=== PATIENT | female | born 1950 | race Caucasian/White ===

== ENCOUNTER 2019-09-06 06:47 | Emergency (ER) | payer MEDICARE, MEDICAID ==
[~2019-09-06] VITALS: Ht 157.5 cm; Wt 100.0 kg
[~2019-09-06 06:47] MED LIST: FURO20TA4 PO; LACO200T2 PO; LACO50TA2 PO; LEVO112T5 PO; METO25TA6 PO; PERA8TAB; PHEN64.8 PO; PHEN97.22 PO; POTA8TAB8 PO; PREG100C PO; SIMV-42 PO
[2019-09-06] MEDS ORDERED: TETanus/Pertussis (Acell)/Diphther VAC/PF (Tdap-Adult) 0.5ml syringe IM ONE (08:10)
[2019-09-06 09:27] VITALS: BP 119/57
== END 2019-09-06 09:30 | disposition home or self-care (01) ==
LOC: ER 06:48
DX: S00.03XA Contusion of scalp, initial encounter (principal); S90.31XA Contusion of right foot, initial encounter; I48.91 Unspecified atrial fibrillation; I11.0 Hypertensive heart disease with heart failure; I50.9 Heart failure, unspecified; E78.00 Pure hypercholesterolemia, unspecified; E03.9 Hypothyroidism, unspecified; G89.29 Other chronic pain; Z98.890 Other specified postprocedural states; Z88.0 Allergy status to penicillin; Z79.899 Other long term (current) drug therapy; W18.39XA Other fall on same level, initial encounter; Y93.89 Activity, other specified; Y92.89 Other specified places as the place of occurrence of the external cause; Y99.8 Other external cause status
CPT/HCPCS: 73630; 90471; 99284

== ENCOUNTER 2019-09-15 17:45 | Emergency (ER) | payer MEDICARE, MEDICAID ==
[~2019-09-15] VITALS: Ht 157.5 cm; Wt 100.0 kg
[~2019-09-15 17:45] MED LIST changes: -SIMV-42 PO; +SIMV20TA5 PO
[2019-09-15 18:20] VITALS: BP 138/70
== END 2019-09-15 18:21 | disposition home or self-care (01) ==
LOC: ER 17:45
DX: M25.561 Pain in right knee (principal); G89.29 Other chronic pain; M54.5 Low back pain; R53.1 Weakness; I48.91 Unspecified atrial fibrillation; I11.0 Hypertensive heart disease with heart failure; I50.9 Heart failure, unspecified; E03.9 Hypothyroidism, unspecified; Z98.890 Other specified postprocedural states; Z79.899 Other long term (current) drug therapy; Z88.0 Allergy status to penicillin; W18.30XA Fall on same level, unspecified, initial encounter; Y93.89 Activity, other specified; Y92.89 Other specified places as the place of occurrence of the external cause; Y99.9 Unspecified external cause status
CPT/HCPCS: 99284

== ENCOUNTER 2019-09-20 18:19 | Emergency (ER) | payer MEDICARE, MEDICAID ==
[~2019-09-20] VITALS: Ht 157.5 cm; Wt 220.0 kg
[2019-09-20 18:25] VITALS: BP 125/74
[2019-09-20] MEDS ORDERED: LACO50TA2 PO (21:01)
[2019-09-20] MEDS ORDERED: LACO200T2 PO (21:01)
== END 2019-09-20 21:25 | disposition home or self-care (01) ==
LOC: ER 18:20
DX: R56.9 Unspecified convulsions (principal); Z76.0 Encounter for issue of repeat prescription; I48.91 Unspecified atrial fibrillation; I11.0 Hypertensive heart disease with heart failure; I50.9 Heart failure, unspecified; E78.00 Pure hypercholesterolemia, unspecified; E03.9 Hypothyroidism, unspecified; G89.29 Other chronic pain; Z98.890 Other specified postprocedural states; Z88.0 Allergy status to penicillin; Z79.899 Other long term (current) drug therapy
CPT/HCPCS: 99284

== ENCOUNTER 2019-11-26 17:31 | Emergency (ER) | payer MEDICARE, MEDICAID ==
[~2019-11-26] VITALS: Ht 157.5 cm; Wt 104.8 kg
[~2019-11-26 17:31] MED LIST changes: +SIMV-42 PO; -SIMV20TA5 PO
[2019-11-26 17:34] VITALS: BP 133/77
[2019-11-26] MEDS ORDERED: LACO50TA2 PO (18:29)
[2019-11-26] MEDS ORDERED: LACO200T2 PO (18:29)
== END 2019-11-26 18:38 | disposition home or self-care (01) ==
LOC: ER 17:32
DX: R56.9 Unspecified convulsions (principal); Z76.0 Encounter for issue of repeat prescription; I48.91 Unspecified atrial fibrillation; E78.00 Pure hypercholesterolemia, unspecified; E03.9 Hypothyroidism, unspecified; G89.29 Other chronic pain; I11.0 Hypertensive heart disease with heart failure; I50.9 Heart failure, unspecified; Z98.890 Other specified postprocedural states; Z87.01 Personal history of pneumonia (recurrent); Z88.0 Allergy status to penicillin; Z79.899 Other long term (current) drug therapy
CPT/HCPCS: 99284

== ENCOUNTER 2022-05-06 12:52 | Emergency (ER) | payer MEDICARE, MEDICAID ==
[~2022-05-06] VITALS: Ht 157.5 cm; Wt 100.0 kg
[~2022-05-06 12:52] MED LIST changes: +LOP25T PO; -METO25TA6 PO
[2022-05-06 16:18] VITALS: BP 132/68
== END 2022-05-06 16:20 | disposition home or self-care (01) ==
LOC: ER 12:52
DX: M53.3 Sacrococcygeal disorders, not elsewhere classified (principal); G40.909 Epilepsy, unspecified, not intractable, without status epilepticus; I48.91 Unspecified atrial fibrillation; I11.0 Hypertensive heart disease with heart failure; I50.9 Heart failure, unspecified; G89.29 Other chronic pain; E78.00 Pure hypercholesterolemia, unspecified; E03.9 Hypothyroidism, unspecified; Z87.01 Personal history of pneumonia (recurrent); Z98.891 History of uterine scar from previous surgery; Z88.0 Allergy status to penicillin; Z79.899 Other long term (current) drug therapy; W18.09XA Striking against other object with subsequent fall, initial encounter; Z91.81 History of falling; Y93.89 Activity, other specified; Y92.89 Other specified places as the place of occurrence of the external cause; Y99.8 Other external cause status
CPT/HCPCS: 99284

== ENCOUNTER 2022-08-25 00:50 | Inpatient (IN) | payer MEDICARE, MEDICAID ==
[~2022-08-25] VITALS: Ht 157.5 cm; Wt 100.0 kg
[2022-08-25] MEDS ORDERED: normal saline 1000ML IV soln IVB ONE ×2 (01:30→04:25)
[2022-08-25 02:07] LABS: BASOPHILS # (AUTO) 0.1 X10'3 (0-0.2); EOSINOPHILS # (AUTO) 0.5 X10'3 (0-0.9); EOSINOPHILS % (AUTO) 7.8 % (0-6); HEMATOCRIT 37.5 % (35.0-45.0); HEMOGLOBIN 12.8 g/dl (12.0-16.0); LYMPHOCYTES # (AUTO) 1.9 X10'3 (1.1-4.8); LYMPHOCYTES % (AUTO) 28.3 % (21-51); MEAN CORPUSCULAR HEMOGLOBIN 32.7 PG (27.0-31.0); MEAN CORPUSCULAR VOLUME 96.2 FL (78-98); MEAN PLATELET VOLUME 8.5 FL (7.4-10.4); MONOCYTES # (AUTO) 0.7 X10'3 (0-0.9); MONOCYTES % (AUTO) 10.2 % (2-12); NEUTROPHILS # (AUTO) 3.6 X10'3 (1.8-7.7); NEUTROPHILS % (AUTO) 52.7 % (42-75); PLATELET COUNT 168 X10'3 (140-440); RED CELL DISTRIBUTION WIDTH 13.8 % (11.5-14.5); WHITE BLOOD COUNT 6.8 X10'3 (4.5-11.0)
[2022-08-25 02:17] LABS: ALANINE AMINOTRANSFERASE 16 U/L (12-78); ALBUMIN 2.9 G/DL (3.4-5.0); ALBUMIN/GLOBULIN RATIO 0.9 (1.1-1.5); ALKALINE PHOSPHATASE 137 IU/L (46-116); ANION GAP 8 (8-16); ASPARTATE AMINO TRANSFERASE 12 U/L (10-37); BILIRUBIN,TOTAL 0.1 MG/DL (0.1-1.0); BLOOD UREA NITROGEN 17 MG/DL (7-18); BUN/CREATININE RATIO 27.9 (6.6-38.0); CALCIUM 8.3 MG/DL (8.5-10.1); CHLORIDE 105 MMOL/L (99-107); CREATININE 0.61 MG/DL (0.40-0.90); GLUCOSE 118 MG/DL (70-104); POTASSIUM 3.4 MMOL/L (3.5-5.1); SODIUM 140 MMOL/L (135-145); TOTAL CARBON DIOXIDE 27.5 MMOL/L (24-32); eGFR > 90 ML/MIN
[2022-08-25 02:24] LABS: MAGNESIUM 2.1 MG/DL (1.5-2.4)
[2022-08-25] MEDS ORDERED: TETanus/Pertussis (Acell)/Diphther VAC/PF (Tdap-Adult) 0.5ml syringe IMVAC ONE (03:40)
[2022-08-25 04:17] LABS: CLARITY,URINE SLIGHTLY CLOUDY (Clear); COLOR,URINE YELLOW (Yellow); GLUCOSE, URINE >=1000 mg/dl (Neg); KETONES,URINE NEGATIVE (Neg); LEUKOCYTE ESTERASE ,URINE SMALL (Neg); NITRITES, URINE NEGATIVE (Neg); OCCULT BLOOD,URINE NEGATIVE (Neg); PROTEIN,URINE NEGATIVE (Neg); UROBILINOGEN,URINE 0.2 E.U/dL (0.2-1.0)
[2022-08-25 04:24] LABS: UA COLLECTION TYPE CLN CATCH MIDSTREAM
[2022-08-25 04:26] LABS: WBC,URINE 20-30 /HPF (0-4)
[2022-08-25 04:27] LABS: BACTERIA,URINE 1+ /HPF (Neg); MUCUS STRANDS FEW /LPF (Neg); SQUAMOUS EPITHELIAL CELL,UR FEW /LPF (FEW); TRANSITIONAL EPI CELLS,URINE FEW /HPF; WBC CLUMPS,URINE FEW /HPF (NEGATIVE); YEAST FEW /HPF (NEGATIVE)
[2022-08-25] MEDS ORDERED: CefTRIAXone/D5W-Rocephin 1gm 50 ML IV ONE (04:30)
[2022-08-25] MEDS ORDERED: potassium Cl 20 mEq SR tablet PO ONE (05:30)
[2022-08-25] MEDS ORDERED: ondansetron/PF 4mg/2ml inj IV PRN (07:55)
[2022-08-25] MEDS ORDERED: magnesium 4gm in 100ml NS 100 ML IV PRN (07:55)
[2022-08-25] MEDS ORDERED: potassium CL 10mEq/100ml bag 100 ML IV PRN (07:55)
[2022-08-25] MEDS ORDERED: HYDROcodone/acetaminophen 5mg/325mg tablet PO PRN (07:55)
[2022-08-25] MEDS ORDERED: POTASSIUM BICARB 20meq eff tab 20 MEQ TABLET.EFF PO PRN ×2 (07:55)
[2022-08-25] MEDS ORDERED: acetaminophen 325mg tablet PO PRN ×2 (07:55)
[2022-08-25] MEDS ORDERED: magnesium 2GM in 50ml NS 50 ML IV PRN (07:55)
[2022-08-25] MEDS ORDERED: magnesium Cl slow-release 64mg tablet PO PRN (07:55)
[2022-08-25] MEDS: normal saline 1000ml 1,000 ML IV SCH ×3 (07:55→18:13)
[2022-08-25] MEDS ORDERED: ciprofloxacin lact 400MG/200ML 200 ML IV SCH (08:00)
[2022-08-25] MEDS ORDERED: dextrose 50%-water 50ml dispensing syringe IV PRN ×2 (08:00)
[2022-08-25] MEDS ORDERED: DEXTROSE 15 GM of carb/4 tabs (each vial/BOTTLE has 4 tablets) PO PRN ×2 (08:00)
[2022-08-25] MEDS ORDERED: heparin, porcine 5000 units/ml vial SQ SCH (08:00)
[2022-08-25] MEDS ORDERED: glucagon, human recombinant 1mg kit SUBCUT PRN (08:00)
[2022-08-25] MEDS ORDERED: K and/or MAG REPLACEMENT MC SCH (08:00)
[2022-08-25] MEDS ORDERED: MESSAGE TO PHARMACY PO ONE (08:00)
[2022-08-25] MEDS ORDERED: insulin Lispro (HumaLOG) vial - multi-dose SQ SCH (08:00)
[2022-08-25] MEDS ORDERED: SACU1TAB PO (14:48)
[2022-08-25] MEDS ORDERED: PHEN32.46 PO (14:48)
[2022-08-25] MEDS ORDERED: LEVO150T8 PO (14:48)
[2022-08-25] MEDS ORDERED: BISO10TA16 PO (14:48)
[2022-08-25] MEDS ORDERED: PREG300C19 PO (14:48)
[2022-08-25] MEDS ORDERED: DAPA10TA PO (14:48)
[2022-08-25] MEDS ORDERED: SPIR25TA5 PO (14:48)
[2022-08-25] MEDS ORDERED: PERA6TAB PO (14:48)
[2022-08-25] MEDS ORDERED: ALBU18HF2 PO (14:49)
[2022-08-25 18:08] VITALS: BP 99/42
--- NOTE | 2022-08-25 19:24 | NUR ---
Pt left AMA. Hospitalist notified. Pt advised to continue medications as directed, but to monitor and document blood pressure daily and to follow up with PCP NAT. Pt also advised to return to ER if condition worsens.
[2022-08-25] MEDS ORDERED: LACOSAMIDE 50 MG TABLET PO SCH ×2 (20:00)
[2022-08-25] MEDS ORDERED: insulin glargine (Lantus) pen - multi-dose SQ SCH (21:00)
[2022-08-25] MEDS ORDERED: TYPE IN GENERIC & BRAND NAME OF PATIENT MED STRENGTH & FORM PO SCH (21:00)
[2022-08-25] MEDS ORDERED: atorvastatin 10mg tablet PO SCH (21:00)
[2022-08-26] MEDS ORDERED: levoTHYROXINE 75mcg tablet PO SCH (07:00)
[2022-08-26] MEDS ORDERED: TYPE IN GENERIC & BRAND NAME OF PATIENT MED STRENGTH & FORM PO SCH (08:00)
[2022-08-26] MEDS ORDERED: atenolol 50mg tablet PO SCH (08:00)
--- NOTE | 2022-09-12 10:25 | NUR ---
[facility] DC follow up: Patient left AMA.
== END 2022-08-25 19:37 | disposition left against medical advice (07) | DRG 315 ==
LOC: ER 00:50 → ED HOLD 07:59
PROVIDERS: ADMIT Internal Medicine; ATTEND Internal Medicine
PROC: 3E0234Z Introduction of Serum, Toxoid and Vaccine into Muscle, Percutaneous Approach (ICD-10-PCS; principal; 2022-08-25)
DX: I95.9 Hypotension, unspecified (principal); I48.20 Chronic atrial fibrillation, unspecified; N39.0 Urinary tract infection, site not specified; G40.909 Epilepsy, unspecified, not intractable, without status epilepticus; R42 Dizziness and giddiness; E03.9 Hypothyroidism, unspecified; E78.00 Pure hypercholesterolemia, unspecified; I11.0 Hypertensive heart disease with heart failure; W18.39XA Other fall on same level, initial encounter; Z53.29 Procedure and treatment not carried out because of patient's decision for other reasons; I25.10 Atherosclerotic heart disease of native coronary artery without angina pectoris; I50.9 Heart failure, unspecified; G89.29 Other chronic pain; Y93.01 Activity, walking, marching and hiking; M54.9 Dorsalgia, unspecified; R26.89 Other abnormalities of gait and mobility; Z87.01 Personal history of pneumonia (recurrent); Z23 Encounter for immunization; Y92.098 Other place in other non-institutional residence as the place of occurrence of the external cause; Y99.8 Other external cause status; Z88.0 Allergy status to penicillin
CPT/HCPCS: 36415; 70450; 71045; 80053; 81001; 82948; 83605; 83735; 83880; 84439; 84443; 84484; 85025; 85610; 87040; 87077; 87081; 87186; 90715; 93005; 93306; 99285; G0378; J0696; J0744; J1644; J1815; J7030

== ENCOUNTER 2022-10-16 01:46 | Emergency (ER) | payer MEDICARE, MEDICAID ==
[~2022-10-16] VITALS: Ht 157.5 cm; Wt 102.2 kg
[~2022-10-16 01:46] MED LIST changes: +ALBU18HF2 PO; +BISO10TA16 PO; +DAPA10TA PO; -FURO20TA4 PO; -LEVO112T5 PO; +LEVO150T8 PO; -LOP25T PO; +PERA6TAB PO; -PERA8TAB; +PHEN32.46 PO; -PHEN64.8 PO; -PHEN97.22 PO; -POTA8TAB8 PO; -PREG100C PO; +PREG300C19 PO; +SACU1TAB PO; +SPIR25TA5 PO
[2022-10-16 01:51] VITALS: BP 108/49
[2022-10-16] MEDS ORDERED: normal saline 1000ML IV soln IVB ONE (02:20)
== END 2022-10-16 03:01 | disposition home or self-care (01) ==
LOC: ER 01:46
DX: M25.561 Pain in right knee (principal); W19.XXXA Unspecified fall, initial encounter; Y93.89 Activity, other specified; Y92.89 Other specified places as the place of occurrence of the external cause; Y99.8 Other external cause status
CPT/HCPCS: 99281

== ENCOUNTER 2022-11-11 00:38 | Inpatient (IN) | payer MEDICARE, MEDICAID ==
[2022-11-11] VITALS (19 sets, daily range): BP systolic 85–135; BP diastolic 37–105
[~2022-11-11] VITALS: Ht 157.5 cm; Wt 104.2 kg
[2022-11-11] MEDS ORDERED: normal saline 1000ml 1,000 ML IV ONE (00:55)
[2022-11-11] MEDS ORDERED: iohexol 350MG/ML 100ml bottle IV ONE (01:17)
[2022-11-11] MEDS ORDERED: CefTRIAXone/D5W-Rocephin 1gm 50 ML IV ONE (01:25)
[2022-11-11 01:26] LABS: BASOPHILS # (AUTO) 0.1 X10'3 (0-0.2); BASOPHILS % (AUTO) 1.2 % (0-1); EOSINOPHILS # (AUTO) 0.5 X10'3 (0-0.9); EOSINOPHILS % (AUTO) 9.2 % (0-6); HEMATOCRIT 35.9 % (35.0-45.0); HEMOGLOBIN 12.2 g/dl (12.0-16.0); LYMPHOCYTES # (AUTO) 1.8 X10'3 (1.1-4.8); LYMPHOCYTES % (AUTO) 32.4 % (21-51); MEAN CORPUSCULAR HEMOGLOBIN 32.4 PG (27.0-31.0); MEAN CORPUSCULAR HGB CONC 33.9 g/dL (33.0-36.5); MEAN CORPUSCULAR VOLUME 95.4 FL (78-98); MEAN PLATELET VOLUME 8.2 FL (7.4-10.4); MONOCYTES # (AUTO) 0.5 X10'3 (0-0.9); MONOCYTES % (AUTO) 9.4 % (2-12); NEUTROPHILS # (AUTO) 2.7 X10'3 (1.8-7.7); NEUTROPHILS % (AUTO) 47.8 % (42-75); PLATELET COUNT 175 X10'3 (140-440); RED BLOOD COUNT 3.77 X10'6 (4.20-5.60); RED CELL DISTRIBUTION WIDTH 14.1 % (11.5-14.5); WHITE BLOOD COUNT 5.7 X10'3 (4.5-11.0)
[2022-11-11] MEDS ORDERED: LIDOcaine 2% 10ml TOPICAL JELLY (Urojet) TP ONE (01:30)
[2022-11-11] MEDS: normal saline 1000ML IV soln IVB ONE ×2 (01:34→02:19)
[2022-11-11 01:48] LABS: ALANINE AMINOTRANSFERASE 13 U/L (12-78); ALBUMIN 2.7 G/DL (3.4-5.0); ALBUMIN/GLOBULIN RATIO 0.9 (1.1-1.5); ALKALINE PHOSPHATASE 132 IU/L (46-116); ANION GAP 8 (8-16); ASPARTATE AMINO TRANSFERASE 15 U/L (10-37); BILIRUBIN,TOTAL 0.2 MG/DL (0.1-1.0); BLOOD UREA NITROGEN 18 MG/DL (7-18); BUN/CREATININE RATIO 29.5 (6.6-38.0); CALCIUM 7.9 MG/DL (8.5-10.1); CHLORIDE 106 MMOL/L (99-107); CREATININE 0.61 MG/DL (0.40-0.90); GLUCOSE 76 MG/DL (70-104); POTASSIUM 3.7 MMOL/L (3.5-5.1); SODIUM 138 MMOL/L (135-145); TOTAL CARBON DIOXIDE 24.1 MMOL/L (24-32); TOTAL PROTEIN 5.7 G/DL (6.4-8.2); eGFR > 90 ML/MIN
[2022-11-11] MEDS: normal saline 1000ml 1,000 ML IVB ONE ×2 (02:00→02:18)
[2022-11-11 02:02] LABS: COLOR,URINE YELLOW (Yellow); GLUCOSE, URINE 500 mg/dl (Neg); KETONES,URINE NEGATIVE (Neg); LEUKOCYTE ESTERASE ,URINE TRACE (Neg); NITRITES, URINE NEGATIVE (Neg); OCCULT BLOOD,URINE NEGATIVE (Neg); PROTEIN,URINE NEGATIVE (Neg); UROBILINOGEN,URINE 0.2 E.U/dL (0.2-1.0)
[2022-11-11 02:08] LABS: BACTERIA,URINE FEW /HPF (Neg); CLARITY,URINE Slightly Cloudy (Clear); RBC,URINE NONE SEEN /HPF (0-2); SQUAMOUS EPITHELIAL CELL,UR MODERATE /LPF (FEW); UA COLLECTION TYPE FOLEY CATH
[2022-11-11 02:09] LABS: WBC CLUMPS,URINE FEW /HPF (NEGATIVE)
[2022-11-11] MEDS: normal saline 1000ml 1,000 ML IV ONE ×2 (02:14→02:19)
[2022-11-11] MEDS ORDERED: NORepinephrine 8mg/ 250ml NS 250 ML IV PRN ×2 (02:20→04:20)
[2022-11-11] MEDS ORDERED: morphine 2 MG/ML inj. syringe IV PRN (04:20)
[2022-11-11] MEDS ORDERED: ondansetron/PF 4mg/2ml inj IV PRN (04:20)
[2022-11-11] MEDS ORDERED: magnesium hydroxide 30ml (MOM) UD suspension PO PRN (04:20)
[2022-11-11] MEDS ORDERED: acetaminophen 325mg tablet PO PRN (04:20)
[2022-11-11] MEDS ORDERED: POTASSIUM BICARB 20meq eff tab 20 MEQ TABLET.EFF PO PRN ×2 (04:20)
[2022-11-11] MEDS: normal saline 1000ml 1,000 ML IV SCH ×2 (04:39→16:40)
--- NOTE | 2022-11-11 04:45 | NUR ---
Pt arrived from ER via gurney, placed on icu bed. Patient awake, alert, oriented x 3, able to follow commands with c/o of low back pain which she states she has had for years due to multiple falls. Iv 18g to Right ac and 20 g to left hand, intact and infusing. Levophed decreased from 0.1 to 0.08 due to elevated diastolic bp (105). Report received from Meghann in ER. All questions answered. Patient with a shirt, pants, underwear and shoes at bedside.
--- NOTE | 2022-11-11 05:52 | NUR ---
hydrophilic foam dressing placed on coccyx for protection.
[2022-11-11] MEDS: K and/or MAG REPLACEMENT MC SCH (08:00)
[2022-11-11] MEDS: pantoprazole 40mg Tablet.DR PO SCH (08:36)
[2022-11-11] MEDS: heparin, porcine 5000 units/ml vial SQ SCH ×2 (08:37→20:49)
[2022-11-11] MEDS: CefTRIAXone/D5W-Rocephin 1gm 50 ML IV SCH (09:43)
[2022-11-11] MEDS ORDERED: normal saline 1000ml 1,000 ML IVB ONE (10:05)
[2022-11-11] MEDS ORDERED: albuterol 2.5 MG/3 ML nebule NEB PRN (10:50)
[2022-11-11] MEDS ORDERED: pregabalin 75mg capsule PO ONE (11:05)
[2022-11-11] MEDS ORDERED: LACOSAMIDE 50 MG TABLET PO ONE (11:05)
--- NOTE | 2022-11-11 16:18 | NUR ---
Patient still requiring 0.01 to 0.03 mcg/kg/min Norepinephrine through PIV. Orders per Dr. Moreno to change to 7.5 Dopamine and transfer to floor if tolerating Dopamine.
[2022-11-11] MEDS ORDERED: DOPamine 400mg/D5W 250ml 250 ML IV SCH (16:20)
[2022-11-11] MEDS: DOPamine 400mg/D5W 250ml 250 ML IV SCH (16:28)
--- NOTE | 2022-11-11 18:26 | NUR ---
Report received from William GRIFFITHS. All questions answered. Patient awake, alert and up in chair having dinner with friend at her bedside. Patient denies any discomfort at this time.
[2022-11-11] MEDS ORDERED: LACOSAMIDE PO SCH (20:00)
[2022-11-11] MEDS: atorvastatin 10mg tablet PO SCH (20:46)
[2022-11-11] MEDS: LACOSAMIDE 50 MG TABLET PO SCH (20:49)
[2022-11-11] MEDS: pregabalin 75mg capsule PO SCH (20:49)
[2022-11-11] MEDS: phenobarbital 30mg tablet PO SCH (20:50)
[2022-11-11] MEDS: PERAMPANEL 6 MG PO SCH (20:50)
[2022-11-11] MEDS: acetaminophen 325mg tablet PO PRN (22:52)
[2022-11-12] VITALS (24 sets, daily range): BP systolic 85–141; BP diastolic 34–69
[2022-11-12] MEDS: DOPamine 400mg/D5W 250ml 250 ML IV SCH ×2 (02:30→17:56)
[2022-11-12] MEDS: normal saline 1000ml 1,000 ML IV SCH ×2 (05:45→20:34)
[2022-11-12 05:57] LABS: ALBUMIN 2.9 G/DL (3.4-5.0); ANION GAP 8 (8-16); BLOOD UREA NITROGEN 10 MG/DL (7-18); BUN/CREATININE RATIO 19.2 (6.6-38.0); CALCIUM 8.5 MG/DL (8.5-10.1); CHLORIDE 108 MMOL/L (99-107); CREATININE 0.52 MG/DL (0.40-0.90); GLUCOSE 126 MG/DL (70-104); MAGNESIUM 1.9 MG/DL (1.5-2.4); PHOSPHORUS 2.6 MG/DL (2.3-4.5); POTASSIUM 3.9 MMOL/L (3.5-5.1); SODIUM 142 MMOL/L (135-145); TOTAL CARBON DIOXIDE 26.2 MMOL/L (24-32); eGFR > 90 ML/MIN
[2022-11-12 06:07] LABS: HEMOGLOBIN 14.1 g/dl (12.0-16.0); WHITE BLOOD COUNT 7.4 X10'3 (4.5-11.0)
[2022-11-12 06:08] LABS: BASOPHILS % (AUTO) 0.3 % (0-1); EOSINOPHILS # (AUTO) 0.1 X10'3 (0-0.9); EOSINOPHILS % (AUTO) 1.8 % (0-6); HEMATOCRIT 41.8 % (35.0-45.0); LYMPHOCYTES # (AUTO) 0.9 X10'3 (1.1-4.8); MEAN CORPUSCULAR HEMOGLOBIN 32.2 PG (27.0-31.0); MEAN CORPUSCULAR HGB CONC 33.7 g/dL (33.0-36.5); MEAN CORPUSCULAR VOLUME 95.7 FL (78-98); MEAN PLATELET VOLUME 8.6 FL (7.4-10.4); MONOCYTES # (AUTO) 0.5 X10'3 (0-0.9); MONOCYTES % (AUTO) 7.2 % (2-12); NEUTROPHILS # (AUTO) 5.8 X10'3 (1.8-7.7); NEUTROPHILS % (AUTO) 78.7 % (42-75); PLATELET COUNT 164 X10'3 (140-440); RED BLOOD COUNT 4.37 X10'6 (4.20-5.60); RED CELL DISTRIBUTION WIDTH 13.8 % (11.5-14.5)
--- NOTE | 2022-11-12 06:30 | NUR ---
Patient in room CICU 2010. I have received report from Bre GRIFFITHS and had the opportunity to ask questions and assume patient care.
[2022-11-12] MEDS: levoTHYROXINE 75mcg tablet PO SCH (07:56)
[2022-11-12] MEDS: pantoprazole 40mg Tablet.DR PO SCH (07:56)
[2022-11-12] MEDS: DAPAGLIFLOZIN 10MG TABLET PO SCH (07:57)
[2022-11-12] MEDS: pregabalin 75mg capsule PO SCH ×2 (07:57→20:11)
[2022-11-12] MEDS: heparin, porcine 5000 units/ml vial SQ SCH ×2 (07:57→20:11)
[2022-11-12] MEDS: K and/or MAG REPLACEMENT MC SCH (08:00)
[2022-11-12] MEDS ORDERED: TYPE IN GENERIC & BRAND NAME OF PATIENT MED STRENGTH & FORM PO SCH (08:00)
[2022-11-12] MEDS: CefTRIAXone/D5W-Rocephin 1gm 50 ML IV SCH (08:39)
[2022-11-12] MEDS: LACOSAMIDE 50 MG TABLET PO SCH ×2 (09:27→20:34)
--- NOTE | 2022-11-12 11:30 | NUR ---
Left wrist PIV infiltrated with dopamine infusing. Started new 20g PIV in right wrist, discontinued left wrist PIV and marked dark area around infusion site with sharpie pen.
[2022-11-12] MEDS ORDERED: normal saline 1000ml 1,000 ML IV ONE (12:00)
[2022-11-12] MEDS: midodrine 5mg tablet PO SCH ×2 (13:13→16:03)
--- NOTE | 2022-11-12 15:30 | NUR ---
Dr Moreno informed of positive blood culture result. Current antibiotic coverage confirmed.
--- NOTE | 2022-11-12 18:13 | NUR ---
Problems reprioritized. Patient report given, questions answered & plan of care reviewed with AYE Gibbs.
[2022-11-12] MEDS: atorvastatin 10mg tablet PO SCH (20:11)
[2022-11-12] MEDS: PERAMPANEL 6 MG PO SCH (20:12)
[2022-11-12] MEDS: phenobarbital 30mg tablet PO SCH (21:05)
[2022-11-13] VITALS (20 sets, daily range): BP systolic 83–157; BP diastolic 39–69
--- NOTE | 2022-11-13 00:42 | NUR ---
Sleeping quietly. BPS 79 O2 sat 88. Dopamine started at 5 mcg/kg/min and O2 wL/min via NC started
[2022-11-13 06:07] LABS: ALBUMIN 2.5 G/DL (3.4-5.0); ANION GAP 10 (8-16); BLOOD UREA NITROGEN 11 MG/DL (7-18); CALCIUM 8.1 MG/DL (8.5-10.1); CHLORIDE 110 MMOL/L (99-107); GLUCOSE 100 MG/DL (70-104); MAGNESIUM 1.9 MG/DL (1.5-2.4); PHOSPHORUS 2.5 MG/DL (2.3-4.5); POTASSIUM 3.7 MMOL/L (3.5-5.1); SODIUM 144 MMOL/L (135-145); TOTAL CARBON DIOXIDE 24.5 MMOL/L (24-32); eGFR > 90 ML/MIN
[2022-11-13 06:15] LABS: BASOPHILS % (AUTO) 0.8 % (0-1); EOSINOPHILS # (AUTO) 0.4 X10'3 (0-0.9); EOSINOPHILS % (AUTO) 6.8 % (0-6); HEMATOCRIT 35.9 % (35.0-45.0); LYMPHOCYTES # (AUTO) 1.3 X10'3 (1.1-4.8); LYMPHOCYTES % (AUTO) 21.7 % (21-51); MEAN CORPUSCULAR HEMOGLOBIN 32.1 PG (27.0-31.0); MEAN CORPUSCULAR HGB CONC 33.5 g/dL (33.0-36.5); MEAN CORPUSCULAR VOLUME 95.7 FL (78-98); MEAN PLATELET VOLUME 8.3 FL (7.4-10.4); MONOCYTES # (AUTO) 0.5 X10'3 (0-0.9); MONOCYTES % (AUTO) 8.1 % (2-12); NEUTROPHILS # (AUTO) 3.6 X10'3 (1.8-7.7); NEUTROPHILS % (AUTO) 62.6 % (42-75); PLATELET COUNT 140 X10'3 (140-440); RED BLOOD COUNT 3.75 X10'6 (4.20-5.60); RED CELL DISTRIBUTION WIDTH 14.3 % (11.5-14.5); WHITE BLOOD COUNT 5.8 X10'3 (4.5-11.0)
[2022-11-13] MEDS: DOPamine 400mg/D5W 250ml 250 ML IV SCH ×2 (06:44→19:32)
[2022-11-13] MEDS: pantoprazole 40mg Tablet.DR PO SCH (07:21)
[2022-11-13] MEDS: CefTRIAXone/D5W-Rocephin 1gm 50 ML IV SCH (07:21)
[2022-11-13] MEDS: heparin, porcine 5000 units/ml vial SQ SCH ×2 (07:21→19:30)
[2022-11-13] MEDS: midodrine 5mg tablet PO SCH ×3 (07:21→15:22)
[2022-11-13] MEDS: levoTHYROXINE 75mcg tablet PO SCH (07:22)
[2022-11-13] MEDS: DAPAGLIFLOZIN 10MG TABLET PO SCH (07:22)
[2022-11-13] MEDS: K and/or MAG REPLACEMENT MC SCH (08:00)
[2022-11-13] MEDS: LACOSAMIDE 50 MG TABLET PO SCH ×2 (08:07→19:29)
[2022-11-13] MEDS: pregabalin 75mg capsule PO SCH ×2 (08:07→19:30)
--- NOTE | 2022-11-13 09:14 | NUR ---
0700 -- pt resting in bed 0800 -- pt up to bedside commode, then to chair. Dopamine gtt turned off by RN. WRIGHT 08 -- Home caregiver given update on pt status. 909 -- Sister given update on pt status. Addendum: 11/13/22 at 0952 by Gloria Frankel RN 0950 -- Pt requested to return to bed. Pt using bedside commode. Call light within reach. VSS. Addendum: 11/13/22 at 1556 by Gloria Frankel RN Pt AOx4. VSS. Dopamine off since 0800 see i/o. Pt up to chair 3x. Pt able to use bedside commode w/ standby assist. Pt appropriately uses call light. NS infusing at 75. Addendum: 11/13/22 at 1600 by Gloria Frankel RN per order. Pt family update and caregiver at bedside. Orders for tx to medsurg placed. Caregiver requesting pt get room w/o a roommate upon moving to medsurg floor. RN informed ICU charge nurse of caregiver requests. Pt BP stable. Blood cultures redrawn due to possible contamination concern. Pt cortisol and TSH also drawn. RN will continue to monitor pt status. Addendum: 11/13/22 at 1624 by Gloria Frankel RN Pt up at bedside commode.
[2022-11-13] MEDS: normal saline 1000ml 1,000 ML IV SCH ×2 (09:40→21:44)
--- NOTE | 2022-11-13 11:24 | NUR ---
Initial: Pt admitted w/ septic shock secondary to UTI per EMR. Currently on heart Healthy diet w/ avg intake 55% of meals partially meeting est needs. Will recommend Ensure Plus HP once daily for additional protein. LBM 11/11, to start colace per MD. Will continue to monitor. Recs: 1. Continue Heart Healthy diet; consider liberalizing to Regular 2. Ensure Plus HP WB; pending MD verification 3. Bowel care per rx 4. Weekly wts Addendum: 11/13/22 at [address] Amended: Links added.
[2022-11-13] MEDS: docusate sod 100mg capsule PO SCH (19:29)
[2022-11-13] MEDS: atorvastatin 10mg tablet PO SCH (20:41)
[2022-11-13] MEDS: PERAMPANEL 6 MG PO SCH (20:42)
[2022-11-13] MEDS: phenobarbital 30mg tablet PO SCH (21:25)
[2022-11-14] VITALS (11 sets, daily range): BP systolic 103–151; BP diastolic 42–70
[2022-11-14 06:32] LABS: BASOPHILS % (AUTO) 0.9 % (0-1); EOSINOPHILS # (AUTO) 0.4 X10'3 (0-0.9); EOSINOPHILS % (AUTO) 8.5 % (0-6); HEMATOCRIT 31.6 % (35.0-45.0); HEMOGLOBIN 10.7 g/dl (12.0-16.0); LYMPHOCYTES # (AUTO) 1.2 X10'3 (1.1-4.8); LYMPHOCYTES % (AUTO) 27.8 % (21-51); MEAN CORPUSCULAR HEMOGLOBIN 32.5 PG (27.0-31.0); MEAN CORPUSCULAR HGB CONC 33.9 g/dL (33.0-36.5); MEAN CORPUSCULAR VOLUME 95.8 FL (78-98); MEAN PLATELET VOLUME 8.1 FL (7.4-10.4); MONOCYTES # (AUTO) 0.4 X10'3 (0-0.9); MONOCYTES % (AUTO) 10.2 % (2-12); NEUTROPHILS # (AUTO) 2.3 X10'3 (1.8-7.7); NEUTROPHILS % (AUTO) 52.6 % (42-75); PLATELET COUNT 122 X10'3 (140-440); RED BLOOD COUNT 3.29 X10'6 (4.20-5.60); RED CELL DISTRIBUTION WIDTH 13.8 % (11.5-14.5); WHITE BLOOD COUNT 4.4 X10'3 (4.5-11.0)
[2022-11-14 07:00] LABS: ALBUMIN 2.2 G/DL (3.4-5.0); ANION GAP 6 (8-16); BLOOD UREA NITROGEN 12 MG/DL (7-18); BUN/CREATININE RATIO 17.6 (6.6-38.0); CALCIUM 8.1 MG/DL (8.5-10.1); CHLORIDE 110 MMOL/L (99-107); CREATININE 0.68 MG/DL (0.40-0.90); GLUCOSE 82 MG/DL (70-104); MAGNESIUM 1.7 MG/DL (1.5-2.4); PHOSPHORUS 3.1 MG/DL (2.3-4.5); POTASSIUM 3.8 MMOL/L (3.5-5.1); SODIUM 142 MMOL/L (135-145); TOTAL CARBON DIOXIDE 25.7 MMOL/L (24-32); eGFR 85 ML/MIN
[2022-11-14] MEDS: pantoprazole 40mg Tablet.DR PO SCH (07:20)
[2022-11-14] MEDS: levoTHYROXINE 75mcg tablet PO SCH (07:20)
[2022-11-14] MEDS: LACTOSE-REDUCED FOOD (ENSURE PLUS-HP) VANILLA 237 ML BOTTLE PO SCH (07:30)
[2022-11-14] MEDS: DAPAGLIFLOZIN 10MG TABLET PO SCH (07:45)
[2022-11-14] MEDS: heparin, porcine 5000 units/ml vial SQ SCH ×2 (07:46→20:37)
[2022-11-14] MEDS: docusate sod 100mg capsule PO SCH ×2 (07:46→20:35)
[2022-11-14] MEDS: LACOSAMIDE 50 MG TABLET PO SCH ×2 (07:46→20:37)
[2022-11-14] MEDS: pregabalin 75mg capsule PO SCH ×2 (07:46→20:36)
[2022-11-14] MEDS: midodrine 5mg tablet PO SCH ×3 (07:47→16:50)
[2022-11-14] MEDS: CefTRIAXone/D5W-Rocephin 1gm 50 ML IV SCH (07:54)
[2022-11-14] MEDS: DOPamine 400mg/D5W 250ml 250 ML IV SCH (08:20)
[2022-11-14] MEDS: normal saline 1000ml 1,000 ML IV SCH (12:22)
--- NOTE | 2022-11-14 15:07 | NUR ---
Telephone report to AYE Patrick on Surgical unit.
--- NOTE | 2022-11-14 15:13 | NUR ---
Pt transferred via wheelchair to room 340B.
--- NOTE | 2022-11-14 18:15 | NUR ---
Patient in room [facility] 340. I have received report from AYE Patrick and had the opportunity to ask questions and assume patient care.
--- NOTE | 2022-11-14 18:41 | NUR ---
Problems reprioritized. Patient report given, questions answered & plan of care reviewed with Naomi GRIFFITHS.
[2022-11-14] MEDS: atorvastatin 10mg tablet PO SCH (20:37)
[2022-11-14] MEDS: PERAMPANEL 6 MG PO SCH (21:00)
[2022-11-14] MEDS: phenobarbital 30mg tablet PO SCH (23:07)
[2022-11-15] MEDS: normal saline 1000ml 1,000 ML IV SCH ×2 (01:40→15:00)
[2022-11-15 06:00] VITALS: BP 124/63
--- NOTE | 2022-11-15 06:05 | NUR ---
Problems reprioritized. Patient report given, questions answered & plan of care reviewed with AYE Patrick.
[2022-11-15 06:09] LABS: BASOPHILS % (AUTO) 0.6 % (0-1); EOSINOPHILS # (AUTO) 0.4 X10'3 (0-0.9); EOSINOPHILS % (AUTO) 7.9 % (0-6); HEMATOCRIT 35.3 % (35.0-45.0); HEMOGLOBIN 11.9 g/dl (12.0-16.0); LYMPHOCYTES # (AUTO) 1.2 X10'3 (1.1-4.8); LYMPHOCYTES % (AUTO) 22.5 % (21-51); MEAN CORPUSCULAR HEMOGLOBIN 32.2 PG (27.0-31.0); MEAN CORPUSCULAR HGB CONC 33.6 g/dL (33.0-36.5); MEAN CORPUSCULAR VOLUME 95.8 FL (78-98); MEAN PLATELET VOLUME 7.9 FL (7.4-10.4); MONOCYTES # (AUTO) 0.5 X10'3 (0-0.9); MONOCYTES % (AUTO) 9.1 % (2-12); NEUTROPHILS # (AUTO) 3.1 X10'3 (1.8-7.7); NEUTROPHILS % (AUTO) 59.9 % (42-75); PLATELET COUNT 156 X10'3 (140-440); RED BLOOD COUNT 3.69 X10'6 (4.20-5.60); RED CELL DISTRIBUTION WIDTH 13.7 % (11.5-14.5); WHITE BLOOD COUNT 5.2 X10'3 (4.5-11.0)
[2022-11-15 06:31] LABS: ALBUMIN 2.7 G/DL (3.4-5.0); ANION GAP 7 (8-16); BLOOD UREA NITROGEN 13 MG/DL (7-18); BUN/CREATININE RATIO 22.4 (6.6-38.0); CALCIUM 8.6 MG/DL (8.5-10.1); CHLORIDE 109 MMOL/L (99-107); CREATININE 0.58 MG/DL (0.40-0.90); GLUCOSE 84 MG/DL (70-104); MAGNESIUM 1.8 MG/DL (1.5-2.4); POTASSIUM 3.8 MMOL/L (3.5-5.1); SODIUM 142 MMOL/L (135-145); TOTAL CARBON DIOXIDE 26.3 MMOL/L (24-32); eGFR > 90 ML/MIN
--- NOTE | 2022-11-15 07:03 | NUR ---
Patient in room [facility] 340. I have received report from Naomi GRFIFITHS and had the opportunity to ask questions and assume patient care.
[2022-11-15] MEDS: LACTOSE-REDUCED FOOD (ENSURE PLUS-HP) VANILLA 237 ML BOTTLE PO SCH (07:30)
[2022-11-15] MEDS: levoTHYROXINE 75mcg tablet PO SCH (07:37)
[2022-11-15] MEDS: pregabalin 75mg capsule PO SCH ×2 (07:38→21:55)
[2022-11-15] MEDS: midodrine 5mg tablet PO SCH ×3 (07:38→16:25)
[2022-11-15] MEDS: DAPAGLIFLOZIN 10MG TABLET PO SCH (07:38)
[2022-11-15] MEDS: pantoprazole 40mg Tablet.DR PO SCH (07:38)
[2022-11-15] MEDS: LACOSAMIDE 50 MG TABLET PO SCH ×2 (07:39→21:56)
[2022-11-15] MEDS: heparin, porcine 5000 units/ml vial SQ SCH ×2 (07:40→21:57)
[2022-11-15] MEDS: docusate sod 100mg capsule PO SCH ×2 (07:40→21:55)
[2022-11-15] MEDS: acetaminophen 325mg tablet PO PRN (07:51)
[2022-11-15] MEDS: CefTRIAXone/D5W-Rocephin 1gm 50 ML IV SCH (08:15)
[2022-11-15 10:00] VITALS: BP 141/70
--- NOTE | 2022-11-15 10:17 | NUR ---
PAGER ID: [phone] MESSAGE: [facility] Surg [phone] Re: Tami GomezB Please call Re: seizure medication
--- NOTE | 2022-11-15 12:41 | NUR ---
PAGER ID: [phone] MESSAGE: Celina Surg [phone] Re: Tami 340B ambulated 300' with PCT. Also would like Nystatin powder for discharge please
[2022-11-15] MEDS ORDERED: nystatin 15 GM powder TP SCH (13:00)
[2022-11-15] MEDS: nystatin 15 GM powder TP SCH ×3 (13:00→21:58)
--- NOTE | 2022-11-15 13:00 | NUR ---
Patient unavailable at this time for Nystatin
[2022-11-15 18:00] VITALS: BP 141/57
--- NOTE | 2022-11-15 18:05 | NUR ---
Patient in room [facility] 340. I have received report from AYE Patrick and had the opportunity to ask questions and assume patient care.
--- NOTE | 2022-11-15 18:10 | NUR ---
Problems reprioritized. Patient report given, questions answered & plan of care reviewed with Naomi GRIFFITHS.
[2022-11-15] MEDS: PERAMPANEL 6 MG PO SCH (21:57)
[2022-11-15] MEDS: atorvastatin 10mg tablet PO SCH (21:57)
[2022-11-15] MEDS: phenobarbital 30mg tablet PO SCH (21:58)
[2022-11-15 22:00] VITALS: BP 133/63
[2022-11-16] MEDS: normal saline 1000ml 1,000 ML IV SCH (04:20)
[2022-11-16 06:04] LABS: EOSINOPHILS # (AUTO) 0.5 X10'3 (0-0.9); EOSINOPHILS % (AUTO) 9.5 % (0-6); HEMATOCRIT 34.4 % (35.0-45.0); HEMOGLOBIN 11.4 g/dl (12.0-16.0); LYMPHOCYTES # (AUTO) 1.3 X10'3 (1.1-4.8); MEAN CORPUSCULAR HEMOGLOBIN 31.7 PG (27.0-31.0); MEAN CORPUSCULAR VOLUME 95.9 FL (78-98); MONOCYTES # (AUTO) 0.5 X10'3 (0-0.9); MONOCYTES % (AUTO) 10.5 % (2-12); NEUTROPHILS # (AUTO) 2.6 X10'3 (1.8-7.7); PLATELET COUNT 151 X10'3 (140-440); RED BLOOD COUNT 3.59 X10'6 (4.20-5.60); RED CELL DISTRIBUTION WIDTH 13.9 % (11.5-14.5); WHITE BLOOD COUNT 4.9 X10'3 (4.5-11.0)
--- NOTE | 2022-11-16 06:33 | NUR ---
Patient in room [facility] 340. I have received report from johnny medel and had the opportunity to ask questions and assume patient care.
--- NOTE | 2022-11-16 06:34 | NUR ---
Problems reprioritized. Patient report given, questions answered & plan of care reviewed with AYE Walters.
[2022-11-16 06:43] LABS: ALBUMIN 2.5 G/DL (3.4-5.0); ANION GAP 8 (8-16); BLOOD UREA NITROGEN 13 MG/DL (7-18); BUN/CREATININE RATIO 26.5 (6.6-38.0); CALCIUM 8.7 MG/DL (8.5-10.1); CHLORIDE 108 MMOL/L (99-107); CREATININE 0.49 MG/DL (0.40-0.90); GLUCOSE 83 MG/DL (70-104); MAGNESIUM 1.7 MG/DL (1.5-2.4); PHOSPHORUS 3.2 MG/DL (2.3-4.5); POTASSIUM 3.5 MMOL/L (3.5-5.1); SODIUM 143 MMOL/L (135-145); TOTAL CARBON DIOXIDE 27.3 MMOL/L (24-32); eGFR > 90 ML/MIN
[2022-11-16 06:59] VITALS: BP 147/76
[2022-11-16] MEDS: LACTOSE-REDUCED FOOD (ENSURE PLUS-HP) VANILLA 237 ML BOTTLE PO SCH (07:30)
[2022-11-16] MEDS: levoTHYROXINE 75mcg tablet PO SCH (07:47)
[2022-11-16] MEDS: pantoprazole 40mg Tablet.DR PO SCH (07:47)
[2022-11-16] MEDS: pregabalin 75mg capsule PO SCH (07:48)
[2022-11-16] MEDS: docusate sod 100mg capsule PO SCH (07:49)
[2022-11-16] MEDS: LACOSAMIDE 50 MG TABLET PO SCH (07:49)
[2022-11-16] MEDS: heparin, porcine 5000 units/ml vial SQ SCH (07:49)
[2022-11-16] MEDS: DAPAGLIFLOZIN 10MG TABLET PO SCH (07:49)
[2022-11-16] MEDS: CefTRIAXone/D5W-Rocephin 1gm 50 ML IV SCH (08:00)
[2022-11-16] MEDS: midodrine 5mg tablet PO SCH (08:00)
[2022-11-16] MEDS: nystatin 15 GM powder TP SCH (08:04)
--- NOTE | 2022-11-16 09:37 | NUR ---
Reassessment: Pt with significant improvement in PO intake, documented with average 89% PO intake since last RD assessment (11/13). Pt to be receiving an Ensure WB however noted it hasn't been available per EMR. D/w dietary to send ONS per rx. Current PO intake is meeting estimated nutrient needs so ONS may no longer be indicated, however will monitor ONS acceptance and further trends in PO intake prior to changing ONS recommendations. LBM 11/15, with bowel care PRN. No further nutrition intervention implemented at this time. Will continue to follow. Recommendations: 1. Continue heart healthy diet; consider liberalizing to regular 2. Ensure Plus HP WB 3. Bowel care per rx 4. Weekly scaled wts Addendum: 11/16/22 at [address] Amended: Links added.
[2022-11-16 11:00] VITALS: BP 126/64
[2022-11-16] MEDS ORDERED: MIDO5TAB4 PO (11:51)
== END 2022-11-16 13:39 | disposition home or self-care (01) | DRG 871 ==
LOC: ER 00:39 → ED HOLD 03:05 → CICU 2S 04:40 → SUR 3N 11-14 15:10
PROVIDERS: ADMIT Internal Medicine; ATTEND Internal Medicine
PROC: B5131ZA Fluoroscopy of Right Jugular Veins using Low Osmolar Contrast, Guidance (ICD-10-PCS; principal; 2022-11-11)
PROC: B3251ZZ Computerized Tomography (CT Scan) of Bilateral Common Carotid Arteries using Low Osmolar Contrast (ICD-10-PCS; 2022-11-11)
PROC: B32G1ZZ Computerized Tomography (CT Scan) of Bilateral Vertebral Arteries using Low Osmolar Contrast (ICD-10-PCS; 2022-11-11)
PROC: B32R1ZZ Computerized Tomography (CT Scan) of Intracranial Arteries using Low Osmolar Contrast (ICD-10-PCS; 2022-11-11)
PROC: B3281ZZ Computerized Tomography (CT Scan) of Bilateral Internal Carotid Arteries using Low Osmolar Contrast (ICD-10-PCS; 2022-11-11)
DX: A41.9 Sepsis, unspecified organism (principal); R65.21 Severe sepsis with septic shock; N39.0 Urinary tract infection, site not specified; Z68.41 Body mass index [BMI] 40.0-44.9, adult; Z20.822 Contact with and (suspected) exposure to COVID-19; I50.9 Heart failure, unspecified; G40.909 Epilepsy, unspecified, not intractable, without status epilepticus; E66.9 Obesity, unspecified; G89.29 Other chronic pain; M54.9 Dorsalgia, unspecified; D64.9 Anemia, unspecified; R47.1 Dysarthria and anarthria; I11.0 Hypertensive heart disease with heart failure; E03.9 Hypothyroidism, unspecified; E78.00 Pure hypercholesterolemia, unspecified; I48.91 Unspecified atrial fibrillation; Z88.0 Allergy status to penicillin; Z79.899 Other long term (current) drug therapy
CPT/HCPCS: 36415; 36556; 70450; 70496; 70498; 71045; 80048; 80053; 81001; 82948; 83605; 83735; 83880; 84100; 84145; 84443; 84484; 85025; 87040; 87081; 87088; 87502; 87503; 87635; 93005; 96361; 96365; 96368; 97110; 97116; 97161; 97530; 99291; A4353; A6213; C1751; G0378; J0696; J1265; J1644; J3490; J7030; J7040; J7042; Q9967

== ENCOUNTER 2023-03-04 06:00 | Emergency (ER) | payer MEDICARE, MEDICAID ==
[~2023-03-04] VITALS: Ht 172.7 cm; Wt 100.0 kg
[~2023-03-04 06:00] MED LIST changes: -BISO10TA16 PO; +MIDO5TAB4 PO; -SACU1TAB PO; -SPIR25TA5 PO
[2023-03-04] MEDS ORDERED: acetaminophen 325mg tablet PO ONE (06:45)
[2023-03-04 09:37] VITALS: BP 105/57
--- NOTE | 2023-03-04 09:45 | NUR ---
PT REQUESTING TO USE BSC PRIOR TO DISCHARGE. STATES SHE NEEDS A FEW MINS.
== END 2023-03-04 10:03 | disposition home or self-care (01) ==
LOC: ER 06:01
DX: S60.012A Contusion of left thumb without damage to nail, initial encounter (principal); S50.312A Abrasion of left elbow, initial encounter; W19.XXXA Unspecified fall, initial encounter; Y93.89 Activity, other specified; Y92.89 Other specified places as the place of occurrence of the external cause; Y99.8 Other external cause status
CPT/HCPCS: 71045; 73030; 73130; 99284

== ENCOUNTER 2023-05-02 22:49 | Emergency (ER) | payer MEDICARE, MEDICAID ==
[~2023-05-02] VITALS: Ht 157.5 cm; Wt 106.4 kg
[~2023-05-02 22:49] MED LIST changes: +BISO10TA16 PO; -DAPA10TA PO; +EMPA10TA PO; -MIDO5TAB4 PO; -PERA6TAB PO; +PERA8TAB PO; -PHEN32.46 PO; +PHEN64.8 PO; +SACU1TAB PO; +SULF1TAB45 PO
[2023-05-02] MEDS ORDERED: levetiracetam inj 1,000 MG in normal saline 100ml IV soln 90 ML IV STA (23:16)
[2023-05-02] MEDS ORDERED: LORazepam 2 mg/ml vial IV ONE (23:20)
[2023-05-03 00:22] VITALS: BP 103/49
== END 2023-05-03 00:24 | disposition home or self-care (01) ==
LOC: ER 22:50
DX: G40.909 Epilepsy, unspecified, not intractable, without status epilepticus (principal); I11.0 Hypertensive heart disease with heart failure; I50.9 Heart failure, unspecified; E78.00 Pure hypercholesterolemia, unspecified; E03.9 Hypothyroidism, unspecified; Z88.0 Allergy status to penicillin
CPT/HCPCS: 96374; 96375; 99284; J1953; J2060; J3490; J7030

== ENCOUNTER 2023-09-25 15:20 | Emergency (ER) | payer MEDICARE, MEDICAID ==
[~2023-09-25] VITALS: Ht 157.5 cm; Wt 104.5 kg
[~2023-09-25 15:20] MED LIST changes: -PREG300C19 PO; +PREG300C20 PO
[2023-09-25 15:44] VITALS: TEMP 97.7
--- NOTE | 2023-09-25 16:06 | NUR ---
cancel ekg per md ndiaye.
[2023-09-25 17:58] LABS: HEMOGLOBIN 13.7 g/dl (12.0-16.0); MEAN CORPUSCULAR HGB CONC 33.6 g/dL (33.0-36.5); MEAN PLATELET VOLUME 7.7 FL (7.4-10.4)
[2023-09-25 18:01] LABS: BASOPHILS # (AUTO) 0.1 X10'3 (0-0.2); BASOPHILS % (AUTO) 0.9 % (0-1); EOSINOPHILS # (AUTO) 0.4 X10'3 (0-0.9); EOSINOPHILS % (AUTO) 5.3 % (0-6); HEMATOCRIT 40.8 % (35.0-45.0); LYMPHOCYTES # (AUTO) 1.4 X10'3 (1.1-4.8); LYMPHOCYTES % (AUTO) 18.5 % (21-51); MEAN CORPUSCULAR VOLUME 95.3 FL (78-98); MONOCYTES # (AUTO) 0.5 X10'3 (0-0.9); MONOCYTES % (AUTO) 6.5 % (2-12); NEUTROPHILS # (AUTO) 5.1 X10'3 (1.8-7.7); NEUTROPHILS % (AUTO) 68.8 % (42-75); PLATELET COUNT 183 X10'3 (140-440); RED BLOOD COUNT 4.28 X10'6 (4.20-5.60); RED CELL DISTRIBUTION WIDTH 13.6 % (11.5-14.5); WHITE BLOOD COUNT 7.5 X10'3 (4.5-11.0)
[2023-09-25 18:03] LABS: ALANINE AMINOTRANSFERASE 20 U/L (12-78); ALBUMIN/GLOBULIN RATIO 0.9 (1.1-1.5); ALKALINE PHOSPHATASE 165 IU/L (46-116); ANION GAP 8 (8-16); ASPARTATE AMINO TRANSFERASE 18 U/L (10-37); BILIRUBIN,TOTAL 0.2 MG/DL (0.1-1.0); BLOOD UREA NITROGEN 13 MG/DL (7-18); CALCIUM 9.3 MG/DL (8.5-10.1); CHLORIDE 108 MMOL/L (99-107); CREATININE 0.52 MG/DL (0.40-0.90); GLUCOSE 92 MG/DL (70-104); POTASSIUM 3.9 MMOL/L (3.5-5.1); SODIUM 142 MMOL/L (135-145); TOTAL CARBON DIOXIDE 26.5 MMOL/L (24-32); TOTAL PROTEIN 6.5 G/DL (6.4-8.2); eCRCL 76 ML/MIN; eGFR > 90 ML/MIN
[2023-09-25 18:11] LABS: PRO BRAIN NATRIURETIC PEPTIDE 149 PG/ML (0-125)
[2023-09-25 18:34] VITALS: BP 106/56; PULSE 70; RESP 15; O2SAT 95
== END 2023-09-25 18:35 | disposition home or self-care (01) ==
LOC: ER 15:24
DX: S00.03XA Contusion of scalp, initial encounter (principal); M54.9 Dorsalgia, unspecified; W19.XXXA Unspecified fall, initial encounter; Y93.89 Activity, other specified; Y92.89 Other specified places as the place of occurrence of the external cause; Y99.8 Other external cause status
CPT/HCPCS: 36415; 70450; 71045; 80053; 83880; 84484; 85025; 99284; 99285

== ENCOUNTER → 2023-09-27 | Emergency (ER) | payer MEDICARE, MEDICAID ==
[~2023-09-27] VITALS: Ht 157.5 cm; Wt 104.5 kg
[2023-09-27 12:14] VITALS: TEMP 98.2
[2023-09-27 14:23] VITALS: BP 128/81; PULSE 82; RESP 16; O2SAT 97
--- NOTE | 2023-09-27 17:10 | NUR ---
I AGREE WITH THE ASSESSMENT PER Carolyn SARMIENTO LVN.
== END | disposition home or self-care (01) ==
LOC: ER 11:57
DX: R60.0 Localized edema (principal); I11.0 Hypertensive heart disease with heart failure; E78.00 Pure hypercholesterolemia, unspecified; I10 Essential (primary) hypertension; E03.9 Hypothyroidism, unspecified; G89.29 Other chronic pain; M54.9 Dorsalgia, unspecified; Z88.0 Allergy status to penicillin; Z79.899 Other long term (current) drug therapy
CPT/HCPCS: 73564; 73610; 73630; 99284

== ENCOUNTER 2023-09-29 18:02 | Emergency (ER) | payer MEDICARE, MEDICAID ==
[~2023-09-29] VITALS: Ht 157.5 cm; Wt 104.5 kg
[2023-09-29 20:39] VITALS: BP 141/77; PULSE 74; RESP 16; TEMP 97.6; O2SAT 96
--- NOTE | 2023-09-29 21:39 | NUR ---
Documentation completed by GREASE WORKER reviewed and concur with GREASE WORKER
== END 2023-09-29 20:43 | disposition home or self-care (01) ==
LOC: ER 18:03
DX: S83.91XA Sprain of unspecified site of right knee, initial encounter (principal); R53.1 Weakness; I48.91 Unspecified atrial fibrillation; I11.0 Hypertensive heart disease with heart failure; I50.9 Heart failure, unspecified; G89.29 Other chronic pain; E03.9 Hypothyroidism, unspecified; E78.00 Pure hypercholesterolemia, unspecified; Z88.0 Allergy status to penicillin; Z79.899 Other long term (current) drug therapy; W19.XXXA Unspecified fall, initial encounter; Y93.89 Activity, other specified; Y92.89 Other specified places as the place of occurrence of the external cause; Y99.8 Other external cause status
CPT/HCPCS: 73564; 99284

== ENCOUNTER 2023-09-30 22:14 | Emergency (ER) | payer MEDICARE, MEDICAID ==
[~2023-09-30] VITALS: Ht 157.5 cm; Wt 104.5 kg
[2023-09-30] MEDS ORDERED: normal saline 1000ML IV soln IVB ONE (22:55)
[2023-09-30] MEDS ORDERED: LORazepam 2 mg/ml vial IV ONE (22:55)
[2023-09-30 23:41] LABS: MEAN CORPUSCULAR HEMOGLOBIN 31.9 PG (27.0-31.0)
[2023-09-30 23:43] LABS: BASOPHILS # (AUTO) 0.1 X10'3 (0-0.2); BASOPHILS % (AUTO) 0.9 % (0-1); EOSINOPHILS # (AUTO) 0.5 X10'3 (0-0.9); EOSINOPHILS % (AUTO) 7.5 % (0-6); HEMATOCRIT 42.1 % (35.0-45.0); HEMOGLOBIN 14.2 g/dl (12.0-16.0); LYMPHOCYTES # (AUTO) 1.5 X10'3 (1.1-4.8); LYMPHOCYTES % (AUTO) 25.7 % (21-51); MEAN CORPUSCULAR HGB CONC 33.6 g/dL (33.0-36.5); MEAN PLATELET VOLUME 8.2 FL (7.4-10.4); MONOCYTES # (AUTO) 0.5 X10'3 (0-0.9); MONOCYTES % (AUTO) 7.7 % (2-12); NEUTROPHILS # (AUTO) 3.5 X10'3 (1.8-7.7); NEUTROPHILS % (AUTO) 58.2 % (42-75); PLATELET COUNT 222 X10'3 (140-440); RED BLOOD COUNT 4.44 X10'6 (4.20-5.60); RED CELL DISTRIBUTION WIDTH 13.7 % (11.5-14.5)
[2023-10-01 00:09] LABS: ALANINE AMINOTRANSFERASE 19 U/L (12-78); ALBUMIN 3.1 G/DL (3.4-5.0); ALBUMIN/GLOBULIN RATIO 0.9 (1.1-1.5); ALKALINE PHOSPHATASE 177 IU/L (46-116); ANION GAP 7 (8-16); ASPARTATE AMINO TRANSFERASE 17 U/L (10-37); BILIRUBIN,TOTAL 0.2 MG/DL (0.1-1.0); BLOOD UREA NITROGEN 15 MG/DL (7-18); BUN/CREATININE RATIO 24.6 (10.0-20.0); CALCIUM 8.9 MG/DL (8.5-10.1); CHLORIDE 104 MMOL/L (99-107); CREATININE 0.61 MG/DL (0.40-0.90); GLUCOSE 94 MG/DL (70-104); SODIUM 138 MMOL/L (135-145); TOTAL CARBON DIOXIDE 27.2 MMOL/L (24-32); TOTAL PROTEIN 6.7 G/DL (6.4-8.2); eCRCL 65 ML/MIN; eGFR > 90 ML/MIN
--- NOTE | 2023-10-01 01:49 | NUR ---
iv dc'd pt being discharged dressing applied
== END 2023-10-01 01:50 | disposition home or self-care (01) ==
LOC: ER 22:15
DX: G40.909 Epilepsy, unspecified, not intractable, without status epilepticus (principal); I11.0 Hypertensive heart disease with heart failure; E78.00 Pure hypercholesterolemia, unspecified; E03.9 Hypothyroidism, unspecified; G89.29 Other chronic pain; M54.9 Dorsalgia, unspecified
CPT/HCPCS: 36415; 70450; 71045; 80053; 80184; 82948; 84484; 85025; 93005; 96374; 99285; J2060; J7030

== ENCOUNTER 2025-01-13 11:58 | Emergency (ER) | payer MEDICARE, MEDICAID ==
[~2025-01-13] VITALS: Ht 157.5 cm; Wt 109.1 kg
[2025-01-13 12:34] VITALS: TEMP 97.8
[2025-01-13 13:13] LABS: BASOPHILS % (AUTO) 0.7 % (0-1); EOSINOPHILS # (AUTO) 0.5 X10'3 (0-0.9); EOSINOPHILS % (AUTO) 7.6 % (0-6); HEMATOCRIT 40.6 % (35.0-45.0); HEMOGLOBIN 13.7 g/dl (12.0-16.0); LYMPHOCYTES # (AUTO) 1.4 X10'3 (1.1-4.8); LYMPHOCYTES % (AUTO) 21.5 % (21-51); MEAN CORPUSCULAR HEMOGLOBIN 32.7 PG (27.0-31.0); MEAN CORPUSCULAR HGB CONC 33.7 g/dL (33.0-36.5); MEAN CORPUSCULAR VOLUME 97.2 FL (78-98); MEAN PLATELET VOLUME 7.2 FL (7.4-10.4); MONOCYTES # (AUTO) 0.5 X10'3 (0-0.9); MONOCYTES % (AUTO) 7.3 % (2-12); NEUTROPHILS # (AUTO) 4.1 X10'3 (1.8-7.7); NEUTROPHILS % (AUTO) 62.9 % (42-75); PLATELET COUNT 210 X10'3 (140-440); RED BLOOD COUNT 4.18 X10'6 (4.20-5.60); RED CELL DISTRIBUTION WIDTH 14.2 % (11.5-14.5); WHITE BLOOD COUNT 6.5 X10'3 (4.5-11.0)
[2025-01-13 13:39] LABS: ETHANOL < 10 MG/DL (<10); LIPASE 75 U/L (16-77); PRO BRAIN NATRIURETIC PEPTIDE 1173 PG/ML (0-450)
[2025-01-13 13:46] LABS: APTT 27 SECONDS (22-32); PROTHROMBIN TIME 10.7 SECONDS (9.0-12.0)
[2025-01-13 13:55] LABS: ALANINE AMINOTRANSFERASE 18 U/L (12-78); ALBUMIN 3.2 G/DL (3.4-5.0); ALBUMIN/GLOBULIN RATIO 0.7 (1.1-1.5); ALKALINE PHOSPHATASE 184 IU/L (46-116); ANION GAP 4 (8-16); ASPARTATE AMINO TRANSFERASE 11 U/L (10-37); BILIRUBIN,TOTAL 0.2 MG/DL (0.1-1.0); BLOOD UREA NITROGEN 12 MG/DL (7-18); BUN/CREATININE RATIO 23.5 (10.0-20.0); CALCIUM 9.3 MG/DL (8.5-10.1); CHLORIDE 103 MMOL/L (99-107); CREATININE 0.51 MG/DL (0.40-0.90); GLUCOSE 94 MG/DL (70-104); POTASSIUM 3.9 MMOL/L (3.5-5.1); SODIUM 143 MMOL/L (135-145); TOTAL CARBON DIOXIDE 36.5 MMOL/L (24-32); TOTAL PROTEIN 7.5 G/DL (6.4-8.2); eCRCL 75 ML/MIN; eGFR > 90 ML/MIN
[2025-01-13 13:55] LABS: BILIRUBIN,URINE NEGATIVE (Neg); CLARITY,URINE CLEAR (Clear); COLOR,URINE YELLOW (Yellow); GLUCOSE, URINE NEGATIVE (Neg); KETONES,URINE NEGATIVE (Neg); LEUKOCYTE ESTERASE ,URINE MODERATE (Neg); NITRITES, URINE NEGATIVE (Neg); OCCULT BLOOD,URINE NEGATIVE (Neg); PH,URINE 6.5 (4.8-8.0); PROTEIN,URINE NEGATIVE (Neg); UROBILINOGEN,URINE 0.2 E.U/dL (0.2-1.0)
[2025-01-13 14:05] LABS: UA COLLECTION TYPE CLN CATCH MIDSTREAM
[2025-01-13 14:22] LABS: BACTERIA,URINE 1+ /HPF (Neg); RBC,URINE 0-2 /HPF (0-2); SQUAMOUS EPITHELIAL CELL,UR FEW /LPF (FEW); WBC,URINE 30-50 /HPF (0-4)
[2025-01-13] MEDS ORDERED: magnesium Cl slow-release 64mg tablet PO PRN (14:30)
[2025-01-13] MEDS ORDERED: acetaminophen 325mg tablet PO PRN (14:30)
[2025-01-13] MEDS ORDERED: mag hydrox/Alum hydrox/simeth 30ml oral suspension PO PRN (14:30)
[2025-01-13] MEDS ORDERED: magnesium sulf-water 4G/100mL 100 ML IV PRN (14:30)
[2025-01-13] MEDS ORDERED: potassium Cl 20 mEq SR tablet PO PRN ×2 (14:30)
[2025-01-13] MEDS ORDERED: magnesium sulf-water 2g/50mL 50 ML IV PRN (14:30)
[2025-01-13] MEDS ORDERED: ondansetron/PF 4mg/2ml inj IV PRN (14:30)
[2025-01-13] MEDS ORDERED: potassium Cl 40MEQ/1/2NS 520ml 520 ML IV PRN (14:30)
[2025-01-13] MEDS ORDERED: magnesium hydroxide 30ml (MOM) UD suspension PO PRN (14:30)
[2025-01-13] MEDS ORDERED: docusate sod 100mg capsule PO PRN (14:30)
[2025-01-13 15:04] VITALS: BP 123/59; PULSE 76; RESP 14; O2SAT 98
[2025-01-13] MEDS ORDERED: iohexol 350MG/ML 100ml bottle IV ONE (15:33)
[2025-01-13] MEDS: CefTRIAXone 2gm/D5W 50ml BAG 50 ML IV ONE (15:45)
[2025-01-13] MEDS ORDERED: CEPH-585 PO (18:09)
[2025-01-13] MEDS ORDERED: K and/or MAG REPLACEMENT MC SCH (20:00)
== END 2025-01-13 18:34 | disposition home or self-care (01) ==
LOC: ER 11:59 → UNDOADMIN 13:57 → ED HOLD 13:57 → ER 18:34
DX: R42 Dizziness and giddiness (principal); R51.9 Headache, unspecified; R79.1 Abnormal coagulation profile; Z88.0 Allergy status to penicillin; Z88.2 Allergy status to sulfonamides; Z79.899 Other long term (current) drug therapy
CPT/HCPCS: 36415; 70450; 70496; 70498; 71045; 80053; 81001; 83690; 83735; 83880; 84484; 85025; 85610; 85730; 87077; 87088; 87186; 93005; 96365; 99285; A4353; G0480; J0696; Q9967; 80320; G0378

== ENCOUNTER 2025-01-19 12:03 | Emergency (ER) | payer MEDICARE, MEDICAID ==
[~2025-01-19] VITALS: Ht 157.5 cm; Wt 110.0 kg
[~2025-01-19 12:03] MED LIST changes: +CEPH-585 PO
[2025-01-19 12:06] VITALS: TEMP 98.5
[2025-01-19 12:32] LABS: BASOPHILS % (AUTO) 0.7 % (0-1); EOSINOPHILS # (AUTO) 0.4 X10'3 (0-0.9); HEMATOCRIT 42.9 % (35.0-45.0); LYMPHOCYTES # (AUTO) 1.9 X10'3 (1.1-4.8); LYMPHOCYTES % (AUTO) 33.5 % (21-51); MEAN CORPUSCULAR HEMOGLOBIN 31.6 PG (27.0-31.0); MEAN CORPUSCULAR HGB CONC 32.6 g/dL (33.0-36.5); MEAN PLATELET VOLUME 7.7 FL (7.4-10.4); MONOCYTES # (AUTO) 0.4 X10'3 (0-0.9); MONOCYTES % (AUTO) 7.4 % (2-12); NEUTROPHILS # (AUTO) 2.9 X10'3 (1.8-7.7); NEUTROPHILS % (AUTO) 51.4 % (42-75); PLATELET COUNT 190 X10'3 (140-440); RED BLOOD COUNT 4.42 X10'6 (4.20-5.60); RED CELL DISTRIBUTION WIDTH 14.4 % (11.5-14.5); WHITE BLOOD COUNT 5.7 X10'3 (4.5-11.0)
[2025-01-19 12:55] LABS: ALBUMIN 3.1 G/DL (3.4-5.0); ANION GAP 5 (8-16); BLOOD UREA NITROGEN 8 MG/DL (7-18); BUN/CREATININE RATIO 20.5 (10.0-20.0); CALCIUM 9.4 MG/DL (8.5-10.1); CHLORIDE 103 MMOL/L (99-107); CREATININE 0.39 MG/DL (0.40-0.90); GLUCOSE 108 MG/DL (70-104); PRO BRAIN NATRIURETIC PEPTIDE 1001 PG/ML (0-450); SODIUM 144 MMOL/L (135-145); TOTAL CARBON DIOXIDE 36.1 MMOL/L (24-32); eCRCL 99 ML/MIN; eGFR > 90 ML/MIN
[2025-01-19 13:00] LABS: POTASSIUM 4.7 MMOL/L (3.5-5.1)
[2025-01-19] MEDS: ipratropium/albuterol 3ml nebule NEB ONE (13:43)
[2025-01-19 13:46] VITALS: PULSE 93; RESP 18; O2SAT 98
[2025-01-19 13:50] VITALS: PULSE 92; RESP 18; O2SAT 97
[2025-01-19] MEDS: dexamethasone sod phosphate 10mg/ml inj IV STA (14:12)
[2025-01-19] MEDS: normal saline 1000ML IV soln IVB ONE (14:19)
[2025-01-19] MEDS ORDERED: PRED20TA PO (14:32)
[2025-01-19 14:56] VITALS: BP 121/71; PULSE 100; RESP 18; O2SAT 98
== END 2025-01-19 15:01 | disposition home or self-care (01) ==
LOC: ER 12:04
DX: J40 Bronchitis, not specified as acute or chronic (principal); E86.0 Dehydration; I48.91 Unspecified atrial fibrillation; I11.0 Hypertensive heart disease with heart failure; I50.9 Heart failure, unspecified; E78.00 Pure hypercholesterolemia, unspecified; E03.9 Hypothyroidism, unspecified; Z88.0 Allergy status to penicillin; Z20.822 Contact with and (suspected) exposure to COVID-19
CPT/HCPCS: 36415; 71045; 80048; 83605; 83880; 84145; 85025; 87040; 87502; 87503; 87811; 93005; 94640; 96374; 99285; A4615; J1100; J7030; 94760

== ENCOUNTER 2025-03-17 20:02 | Emergency (ER) | payer MEDICARE, MEDICAID ==
[~2025-03-17] VITALS: Ht 157.5 cm; Wt 110.1 kg
[~2025-03-17 20:02] MED LIST changes: -CEPH-585 PO
[2025-03-17] MEDS: CefTRIAXone 1000mg IM Kit (w/lidocaine diluent) IM ONE (22:19)
[2025-03-17] MEDS ORDERED: CEPH-585 PO (22:45)
[2025-03-17 22:56] VITALS: BP 134/76; PULSE 94; RESP 18; TEMP 98.6; O2SAT 99
== END 2025-03-17 22:58 | disposition home or self-care (01) ==
LOC: ER 20:03
DX: A46 Erysipelas (principal); E03.9 Hypothyroidism, unspecified; I11.0 Hypertensive heart disease with heart failure; I50.9 Heart failure, unspecified; E78.00 Pure hypercholesterolemia, unspecified; I48.91 Unspecified atrial fibrillation; Z88.0 Allergy status to penicillin
CPT/HCPCS: 96372; 99283; J0696

== ENCOUNTER 2025-06-30 12:12 | Emergency (ER) | payer MEDICARE, MEDICAID ==
[~2025-06-30] VITALS: Ht 157.5 cm; Wt 109.1 kg
[2025-06-30 13:04] LABS: MEAN PLATELET VOLUME 7.8 FL (7.4-10.4); RED CELL DISTRIBUTION WIDTH 13.9 % (11.5-14.5)
[2025-06-30 13:21] LABS: CREATININE 0.55 MG/DL (0.40-0.90); TOTAL CARBON DIOXIDE 33.6 MMOL/L (24-32); eCRCL 70 ML/MIN; eGFR > 90 ML/MIN
--- NOTE | 2025-06-30 14:29 | Physician Documentation ---
History of Present Illness ~ Chief Complaint: Facial Swelling Stated Complaint: SWELLING ON CHEEK Time Seen by MD: 13:49 Primary Medical Doctor: DR MENDOZA HPI Patient is a 74-year-old female that presents to the emergency department with her mains and service supervisor for evaluation of left-sided facial swelling. Patient reports she has had the swelling for the last couple of hours this is a her 3rd episode of this presentation in one year. Patient care provider before it reports that she was placed on antibiotics for the last two episodes with resolution. He has any presents with lethargy x2 days general feeling of unwell and redness and swel ling to the left side of her face. Patient reports that she has a significant cardiac history. And take several medications. Medication Reconciliation Allergies: Coded Allergies: Penicillins (Verified Allergy, Unknown, 06/30/25) Scheduled Clindamycin HCl (Clindamycin HCl), 1 CAP PO Q8H Empagliflozin (Jardiance), 1 TAB PO DAILY, (Reported) Lacosamide (Vimpat), 1 TAB PO BID, (Reported) Lacosamide (Vimpat), 1 TAB PO BID, (Reported) Levothyroxine Sodium (Levothyroxine Sodium), 1 TAB PO QAM, (Reported) Perampanel (Fycompa), 1 TAB PO HS, (Reported) Phenobarbital (Phenobarbital), 2.5 TAB PO HS, (Reported) Pregabalin (Pregabalin), 1 CAP PO BID, (Reported) Simvastatin* (Zocor*), 1 TAB PO HS, (Reported) Sulfamethoxazole/Trimethoprim (Septra Ds Tab), 1 TAB PO BID, (Reported) Scheduled PRN Albuterol Sulfate (Ventolin Hfa), 2 PUFFS PO Q4H PRN for SOB or wheezing, (Reported) Bisoprolol Fumarate (Bisoprolol Fumarate), 1 TAB PO DAILY PRN for SPB>100, (Reported) Sacubitril/Valsartan (Entresto 24 mg-26 mg Tablet), 1 TAB PO BID PRN for SBP>100, (Reported) Past Medical History Past Medical History: Seizures, Arrhythmia, Atrial Fibrillation, Congestive Heart Failure, High Cholesterol, Hypertension, Pneumonia, Hypothyroidism, Chronic Back Pain Past Surgical History: Patient History: FH: diabetes mellitus sister FH: heart disease Brother Brother Alcohol Use: None Drug Use: none Lives with: Family Lives In: Home Occupation: disabled, retired Review of Systems ROS As stated above in the HPI, otherwise all systems are reviewed and negative. Physical Exam Vital Signs: Temperature: 98.3, Source: Oral, Heart Rate: 71, Respiratory Rate: 16, BP: 115/64, Pulse Oximetry: 93, Weight: 109.090 Oxygen Flow Rate: 0 Physical Exam VITALS: Reviewed and as above. GENERAL: Alert, no apparent distress. HEENT: Normocephalic, atraumatic, PERRL, EOMI, dry mucosa, no erythema RESPIRATORY: Lungs clear, normal breath sounds, no respiratory distress. CHEST: No accessory muscle use, no retractions CV: Regular rate, rhythm, no edema, no murmur, No: JVD GI: Soft, non-tender, bowels sounds present, no rebound, guarding, or rigidity BACK: No CVA tenderness, or swelling MUSCULOSKELETAL No deformities, no edema SKIN: Warm and dry, erythema and swelling to the left side of face NEURO: Oriented x4, No motor or sensory deficit PSYCH: Normal mood and affect, no agitation Progress Results/Orders Results/Orders Orders - MARILUZ JOHN DIRECTOR OPERATIONS BROADCAST Culture Blood (06/30/25 15:09) Chest,Single View (06/30/25 15:09) Page Hospitalist (06/30/25 16:27) Fill Out Med Reconciliation (06/30/25 16:27) Completed Orders - MARILUZ JOHN DIRECTOR OPERATIONS BROADCAST Urinalysis, Cult If Indicated (06/30/25 14:24) Lacticsepsis (06/30/25 15:09) Chest,Single View (06/30/25 15:09) PBNP (06/30/25 15:09) Clindamycin Capsule (Cleocin Capsule) (06/30/25 18:55) Clindamycin 300mg/D5w 50ml (Clindamycin (06/30/25 20:38) Vital Signs 06/30/25 06/30/25 06/30/25 06/30/25 12:20 15:59 18:13 21:16 Temp 98.3 98.3 98.3 98.6 Pulse 71 73 72 70 Resp 16 12 16 18 B/P (MAP) 115/64 123/69 (87) 136/65 (88) 132/64 Pulse Ox 93 98 100 99 O2 Flow Rate 0 0 0 Laboratory Tests Test 06/30/25 12:40 06/30/25 14:48 White Blood Count 5.8 Red Blood Count 3.99 L Hemoglobin 12.9 Hematocrit 38.0 Mean Corpuscular Volume 95.2 Mean Corpuscular Hemoglobin 32.4 H Mean Corpuscular Hemoglobin Concent 34.0 Red Cell Distribution Width 13.9 Platelet Count 173 Mean Platelet Volume 7.8 Neutrophils (%) (Auto) 61.1 Lymphocytes (%) (Auto) 22.0 Monocytes (%) (Auto) 9.1 Eosinophils (%) (Auto) 7.0 H Basophils (%) (Auto) 0.8 Neutrophils # (Auto) 3.5 Lymphocytes # (Auto) 1.3 Monocytes # (Auto) 0.5 Eosinophils # (Auto) 0.4 Basophils # (Auto) 0.0 CBC Comment Sodium Level 140 Potassium Level 4.2 Chloride Level 103 Carbon Dioxide Level 33.6 H Anion Gap 3 L Blood Urea Nitrogen 10 Creatinine 0.55 Estimated GFR/1.73 m2 > 90 BUN/Creatinine Ratio 18.2 Glucose Level 87 Lactic Acid Level 1.2 Calcium Level 9.1 Total Bilirubin 0.2 Aspartate Amino Transf (AST/SGOT) 14 Alanine Aminotransferase (ALT/SGPT) 14 Alkaline Phosphatase 162 H Pro-B-Type Natriuretic Peptide 363 Total Protein 6.5 Albumin 2.8 L Globulin 3.7 Albumin/Globulin Ratio 0.8 L Chemistry Comments Urine Specimen Description Cln catch midstream Urine Color Yellow Urine Clarity Clear Urine pH 7.0 Urine Specific Murphy 1.010 Urine Protein Negative Urine Glucose (UA) Negative Urine Ketones Negative Urine Occult Blood Negative Urine Nitrite Negative Urine Bilirubin Negative Urine Urobilinogen 0.2 Urine Leukocyte Esterase Negative Urine Culture Indicated Not ind Volume Urine Centrifuged 10 ml Urine Comment Microbiology Date/Time Source Procedure Growth Status 06/30/25 15:56 Blood Arm Left Blood Culture - Preliminary NO GROWTH AFTER 4 DAYS Resulted Medical Decision Making Findings You patient underwent laboratory diagnostics x-ray imaging. Presentation consistent with last two previous episodes. Patient's presentation consistent with erysipelas. Discussed with the attending a I am concerned for need for IV antibiotics and admission due to this being the 3rd presentation of this combined with the patient's age, and lethargy. A dose of Clindamycin has been administered here in the ER and a course of oral Clindamycin has been prescribed. Follow up with the primary care provider. Patient will return to the emergency department if she has worsening of symptoms or any additional concerning symptoms present. Differential Dx:Considerations: Include: Anaphylaxis, Angioedema, Bronchospasm, Contact dermatitis, Drug reaction, Hypotension, Latex allergy, Renal failure, Respiratory failure, Shock, Urticaria, Other Departure Disposition: 01 HOME / SELF CARE / HOMELESS Admission Level of Care: Med/Surg with Tele Impression: Primary Impression: Cellulitis Additional Impression: Erysipelas Condition: Stable Additional Instructions: You are seen for evaluation of cellulitis in the left side of your face. You were diagnosed with erysipelas inserted on clindamycin here in emergency department. Prescribed a course of clindamycin please take that medication until the medication is finished. He is follow up with the primary care provider. Return to the emergency department if you have worsening of symptoms develop fevers nausea vomiting diarrhea additional swelling to your face head aches blurred vision her any other concerning symptoms. Referrals: NO PRIMARY CARE PROVIDER (PCP) Prescriptions Clindamycin HCl (Clindamycin HCl) 300 Mg Capsule 1 CAP PO Q8H for 7 Days, #21 CAP Prov: MARILUZ JOHN 06/30/25 Education Educated: Patient, Family Educated regarding: treatment, need for follow up Signature Scribe Signature: . Attestation: Scribed for Mariluz John by CHYNA Davila . 06/30/25 20:26 MARILUZ JOHN Jun 30, 2025 14:29
--- NOTE | 2025-06-30 15:41 | RADIOLOGY REPORT ---
CHEST RADIOGRAPH Indication: SOB Technique: Single frontal view of the chest was obtained COMPARISON: DI CHEST,SINGLE VIEW on DOS: 01/19/25, DI CHEST,SINGLE VIEW on DOS: 01/13/25, DI CHEST,SING LE VIEW on DOS: 09/30/23, DI CHEST,SINGLE VIEW on DOS: 09/25/23, CHEST,SINGLE VIEW on DOS: 03/04/23 FINDINGS: Lines and Tubes: None Lungs: Clear Pleura: No effusion. No pneumothorax. Cardiomediastinal contours: Unremarkable Bones: Unremarkable IMPRESSION: No acute disease.
[2025-06-30 18:14] LABS: LEUKOCYTE ESTERASE ,URINE NEGATIVE (Neg); NITRITES, URINE NEGATIVE (Neg); OCCULT BLOOD,URINE NEGATIVE (Neg)
[2025-06-30 18:16] LABS: UA COLLECTION TYPE CLN CATCH MIDSTREAM
[2025-06-30] MEDS ORDERED: CLIN300C54 PO (20:26)
[2025-06-30] MEDS: clindamycin 300mg/D5W 50mL 50 ML IV ONE (20:44)
[2025-06-30 21:16] VITALS: BP 132/64; PULSE 70; RESP 18; TEMP 98.6; O2SAT 99
== END 2025-06-30 21:17 | disposition home or self-care (01) ==
LOC: ER 12:13
DX: L03.211 Cellulitis of face (principal); A46 Erysipelas; I11.0 Hypertensive heart disease with heart failure; I50.9 Heart failure, unspecified; I48.91 Unspecified atrial fibrillation; E78.00 Pure hypercholesterolemia, unspecified; E03.9 Hypothyroidism, unspecified; Z88.0 Allergy status to penicillin; Z79.899 Other long term (current) drug therapy
CPT/HCPCS: 36415; 71045; 80053; 81003; 83605; 83880; 85025; 87040; 96365; 99284; J3490

== ENCOUNTER 2025-09-27 19:35 | Emergency (ER) | payer MEDICARE, MEDICAID ==
[~2025-09-27] VITALS: Ht 157.5 cm; Wt 110.0 kg
[2025-09-27] MEDS ORDERED: DOXY100C43 PO (21:29)
--- NOTE | 2025-09-27 21:30 | Physician Documentation ---
History of Present Illness General Chief Complaint: Facial Swelling Stated Complaint: L SIDE SWOLLEN FACE Time Seen by MD: 21:11 Primary Medical Doctor: DR MENDOZA History of Present Illness Initial Comments 74-year-old female brought to the emergency department by her daughter for evaluation of read a current left facial cellulitis. Patient reports symptoms began today and she has not had any resolution after taking some Benadryl so she reports in the emergency department. Reports that she has had two prior episodes in the presentation is has been in the same. Her management has included antihistamines and antibiotics. The are no pustules look located to the left cheek and there is no otalgia or dysphagia. There was no scalp rash and there has been no recent changes to soaps or other products. Patient is unaware of the trigger. Reports she has had resolution in the past without needing hospitalization. Medication Reconciliation Allergies: Coded Allergies: Penicillins (Verified Allergy, Unknown, 06/30/25) Scheduled Doxycycline Monohydrate (Doxycycline Monohydrate), 100 MG PO BID Empagliflozin (Jardiance), 1 TAB PO DAILY, (Reported) Lacosamide (Vimpat), 1 TAB PO BID, (Reported) Lacosamide (Vimpat), 1 TAB PO BID, (Reported) Levothyroxine Sodium (Levothyroxine Sodium), 1 TAB PO QAM, (Reported) Perampanel (Fycompa), 1 TAB PO HS, (Reported) Phenobarbital (Phenobarbital), 2.5 TAB PO HS, (Reported) Pregabalin (Pregabalin), 1 CAP PO BID, (Reported) Simvastatin* (Zocor*), 1 TAB PO HS, (Reported) Sulfamethoxazole/Trimethoprim (Septra Ds Tab), 1 TAB PO BID, (Reported) Scheduled PRN Albuterol Sulfate (Ventolin Hfa), 2 PUFFS PO Q4H PRN for SOB or wheezing, (Reported) Bisoprolol Fumarate (Bisoprolol Fumarate), 1 TAB PO DAILY PRN for SPB>100, (Reported) Sacubitril/Valsartan (Entresto 24 mg-26 mg Tablet), 1 TAB PO BID PRN for SBP>100, (Reported) Past Medical History Past Medical History: Seizures, Arrhythmia, Atrial Fibrillation, Congestive Heart Failure, High Cholesterol, Hypertension, Pneumonia, Hypothyroidism, Chronic Back Pain Past Surgical History: Smoking: Non-Smoker Alcohol Use: None Drug Use: none Lives with: Family Lives In: Home Occupation: disabled, retired Review of Systems All Other Systems at this time: Reviewed and Negative Constitutional: Denies: fever, chills Integ: Reports: rash Physical Exam Physical Exam Vital Signs: RN Vital Signs have been reviewed: Yes, Temperature: 98.2, Source: Oral, Heart Rate: 115, Respiratory Rate: 18, BP: 138/69, Pulse Oximetry: 94, Weight: 110.000 General Appearance: alert, WD/WN, mild distress Head: normal inspection Face Erythema with brawny skin to the left cheek. No dental caries. No submental lymphadenopathy and no mastoid tenderness Pupils/EOM/Fundus: PERRLA Ear: auricle normal; No: swelling, tenderness Nose: normal inspection Neck: non-tender, full range of motion Respiratory: lungs clear Chest: no accessory muscle use Cardiovascular: normal peripheral pulses Extremities: normal range of motion, non-tender Neurologic: oriented x4 Skin: rash, erythema Lymphatic: no adenopathy Progress Results/Orders Results/Orders Completed Orders - DARIUS GILMAN PAC Doxycycline 100mg Capsule (Vibramycin 10 (09/27/25 21:30) Diphenhydramine Capsule (Benadryl Capsul (09/27/25 21:30) Vital Signs 09/27/25 09/27/25 19:38 21:41 Temp 98.2 98.6 Pulse 115 99 Resp 18 18 B/P (MAP) 138/69 130/70 Pulse Ox 94 99 Medical Decision Making Additional information obtaine: family Findings Patient examination and history is consistent with a type 1 hypersensitivity reaction with cellulitis. We will be addressing the hyperemia/erythema with antihistamine 25 mg of Benadryl and doxycycline for underlying suspected infe ction. Prescriptions have been sent to patient's pharmacy. There was no lymphadenopathy noted and there was no otalgia dysphagia in her airway is patent. Patient is very safe for discharge with strict aftercare instructions. She has been released to her daughter. Differential Diagnosis Differentials include but not limited to: Facial cellulitis working diagnosis along with type 1 hypersensitivity , autoimmune disease, drug reaction, no clinical suspicion for angioedema, anaphylaxis, parotid tumor brachial cleft cyst or other such etiologies. Departure Disposition: HOME / SELF CARE / HOMELESS Impression: Primary Impression: Facial cellulitis Condition: Improved Discharge Instructions: Cellulitis, Adult, [id number] Additional Instructions: Please obtain prescriptions and begin as directed. Please follow up with the primary care physician and to return to the emergency department if symptoms worsen. Thank you for visiting emergency department [facility]. Referrals: NO PRIMARY CARE PROVIDER (PCP) Prescriptions Doxycycline Monohydrate (Doxycycline Monohydrate) 100 Mg Capsule 100 MG PO BID, #20 CAP may sub doxycycline hyclate or azithromycin z-pack as prescribed Prov: DARIUS GILMAN PAC 09/27/25 Education Educated: Patient Educated regarding: diagnosis, treatment, prognosis Signature Scribe Signature: . Attestation: . DARIUS GILMAN PAC Sep 27, 2025 21:30
[2025-09-27] MEDS: DOXYCYCLINE 100MG CAPSULE PO STA (21:37)
[2025-09-27 21:41] VITALS: BP 130/70; PULSE 99; RESP 18; TEMP 98.6; O2SAT 99
== END 2025-09-27 21:42 | disposition home or self-care (01) ==
LOC: ER 19:36
DX: L03.211 Cellulitis of face (principal); G89.29 Other chronic pain; E78.00 Pure hypercholesterolemia, unspecified; E03.9 Hypothyroidism, unspecified; I48.91 Unspecified atrial fibrillation; I11.0 Hypertensive heart disease with heart failure; I50.9 Heart failure, unspecified; Z88.0 Allergy status to penicillin; Z79.899 Other long term (current) drug therapy; Z98.890 Other specified postprocedural states
CPT/HCPCS: 99283; Q0163